=== PATIENT | female | born 1970 | race African-American/Black ===

== ENCOUNTER 2017-08-12 23:16 | Inpatient (IN) | payer MEDICARE ==
[~2017-08-12] VITALS: Ht 165.1 cm; Wt 104.3 kg
--- NOTE | 2017-08-12 22:00 | NUR ---
Patient received at 2200 from [facility] by ambulance in [facility]. Will initiate admission. Belongings list reviewed assessments. will call for orders.
--- NOTE | 2017-08-12 23:50 | NUR ---
Patient refused MRSA swap. Also refused to had pictures taken from her incision site. Also refused ti be assessed. risk and benefits explained. continue to monitor.
[2017-08-13] MEDS ORDERED: Z GUARD REMEDY PASTE 57 GM TUBE TOP PRN ×2 (02:00→05:00)
[2017-08-13] MEDS ORDERED: OXYCODONE/APAP 5-325 MG TABLET PO PRN (04:15)
[2017-08-13] MEDS ORDERED: ZOLPIDEM 5 MG TABLET PO PRN (05:00)
[2017-08-13] MEDS ORDERED: ONDANSETRON 4 MG/2 ML VIAL IV PRN (05:00)
[2017-08-13] MEDS ORDERED: ACETAMINOPHEN 325 MG TABLET PO PRN (05:00)
[2017-08-13] MEDS ORDERED: MAGNESIUM HYDROXIDE 30 ML LIQUID UDC PO PRN (05:00)
[2017-08-13] MEDS ORDERED: BISA-79 RC (05:19)
[2017-08-13] MEDS ORDERED: OXYC15TA2 PO (05:19)
[2017-08-13] MEDS ORDERED: CLON0.1T PO (05:19)
[2017-08-13] MEDS ORDERED: ZOLP5TAB2 PO (05:19)
[2017-08-13] MEDS ORDERED: METH500T PO (05:19)
[2017-08-13] MEDS ORDERED: RING500I4 IV (05:19)
[2017-08-13] MEDS ORDERED: LOSA1TAB3 PO (05:19)
[2017-08-13] MEDS ORDERED: MORP2CAR IV (05:19)
[2017-08-13] MEDS ORDERED: PANT40TA2 PO (05:19)
[2017-08-13] MEDS ORDERED: DOCU-141 PO (05:19)
[2017-08-13] MEDS ORDERED: BUTA1CAP46 PO (05:19)
[2017-08-13] MEDS ORDERED: RIVA10TA PO (05:19)
[2017-08-13] MEDS ORDERED: ONDA4TAB10 IV (05:19)
[2017-08-13] MEDS ORDERED: OXYC-133 PO (05:19)
[2017-08-13] MEDS ORDERED: DIPH25CA83 PO (05:19)
[2017-08-13] MEDS ORDERED: MAG355OR18 PO (05:19)
[2017-08-13] MEDS ORDERED: MAGN30OR PO (05:19)
[2017-08-13] MEDS ORDERED: SENN-18 PO (05:19)
[2017-08-13 06:44] VITALS: BP 127/46
[2017-08-13 08:18] VITALS: BP 147/64
--- NOTE | 2017-08-13 10:00 | NUR ---
Patient noted resting in bed while watching tv, Complaints of pain 10/10 in right hip, PRN Percocet given, no signs of distress noted, call light in reach, bed locked and in lowest position
[2017-08-13] MEDS ORDERED: PANTOPRAZOLE SODIUM 40 MG TABLET.DR PO SCH (12:03)
[2017-08-13] MEDS: OXYCODONE/APAP 5-325 MG TABLET PO PRN ×2 (12:18→17:36)
[2017-08-13] MEDS ORDERED: LORAZEPAM 0.5 MG TABLET PO PRN (13:45)
[2017-08-13] MEDS ORDERED: SULI150T PO (13:51)
[2017-08-13] MEDS: HYDROCODONE/APAP 5-325MG TABLET PO PRN ×2 (15:56→21:12)
[2017-08-13 16:54] VITALS: BP 134/81
[2017-08-13] MEDS ORDERED: Medication Not On Formulary EA (Losartan/Hydrochlorothiazide (Hyzaar 50-12.5 Tablet) 1 E PO SCH (17:00)
[2017-08-13] MEDS: DOCUSATE SODIUM 100 MG CAPSULE PO SCH (17:27)
[2017-08-13] MEDS: HYDROCHLOROTHIAZIDE 12.5 MG CAPSULE PO SCH (17:36)
[2017-08-13] MEDS: LOSARTAN POTASSIUM 50 MG TABLET PO SCH (17:37)
[2017-08-13] MEDS: RIVAROXABAN 10 MG TABLET PO SCH (17:40)
--- NOTE | 2017-08-13 19:30 | NUR ---
Awake during initial rounds. Denies any pain/discomforts at this time. Dressing on right hip dry and intact. Ambulatory to the bathroom with walker. Safety measure and fall precaution maintained. Continue care as planned.
[2017-08-13 20:31] VITALS: BP 109/49
[2017-08-13] MEDS ORDERED: DOCUSATE SODIUM 100 MG CAPSULE PO SCH (21:00)
[2017-08-13] MEDS: PANTOPRAZOLE SODIUM 40 MG TABLET.DR PO SCH (21:00)
[2017-08-14] MEDS: OXYCODONE/APAP 5-325 MG TABLET PO PRN ×4 (02:31→20:34)
[2017-08-14 05:00] VITALS: BP 123/59
--- NOTE | 2017-08-14 07:06 | NUR ---
Shift End Report: VS stable. Slept in between care. Medicated 3x for pain with mild relief. Complaining that she needed a stronger pain medication when she found out that [place] was discontinued. Will endorse to oncoming nurse. All need attended and met. No significant event reported. Continue current plan of care.
--- NOTE | 2017-08-14 07:57 | NUR ---
Patient noted ambulating to restroom, complains of pain, previous nurse has already medicated, will reassess, no signs of distress noted, call light in reach, bed locked and in lowest position
[2017-08-14 08:02] VITALS: BP 126/63
[2017-08-14] MEDS: DOCUSATE SODIUM 100 MG CAPSULE PO SCH ×2 (08:47→17:27)
[2017-08-14] MEDS ORDERED: HYDROCODONE/APAP 5-325MG TABLET PO PRN (11:15)
[2017-08-14] MEDS: METHOCARBAMOL 500 MG TABLET PO PRN ×2 (11:23→20:40)
[2017-08-14] MEDS ORDERED: MORPHINE SULFATE SR 15 MG TABLET.SA PO SCH (14:00)
[2017-08-14] MEDS: HYDROCHLOROTHIAZIDE 12.5 MG CAPSULE PO SCH (17:00)
[2017-08-14] MEDS: LOSARTAN POTASSIUM 50 MG TABLET PO SCH (17:00)
[2017-08-14] MEDS: HYDROCODONE/APAP 5-325MG TABLET PO PRN (17:25)
[2017-08-14] MEDS: RIVAROXABAN 10 MG TABLET PO SCH (17:35)
--- NOTE | 2017-08-14 19:40 | NUR ---
Received pt in bed, watching television. AAO x 4, no acute distress noted. C/O right hip pain 8/10 aching and tender. Verbally responsive and able to make needs known. All safety measures and fall precautions maintained. Call light and all personal belongings within reach. Will continue to monitor.
[2017-08-14] MEDS: PANTOPRAZOLE SODIUM 40 MG TABLET.DR PO SCH (20:34)
[2017-08-14 20:56] VITALS: BP 140/73
[2017-08-14] MEDS ORDERED: METHYL SALICYLATE/MENTHOL CREAM 28 GM TUBE TOP PRN (21:00)
[2017-08-15] MEDS: HYDROCODONE/APAP 5-325MG TABLET PO PRN ×4 (01:42→20:16)
--- NOTE | 2017-08-15 02:00 | NUR ---
Patient reported pain right hip 10/10 pain scale. PRN [place] given per MD order. Upon assessment, noted with right inner groin redness, tender to touch and warm. No acute distress noted. Picture taken and placed in chart. MD made aware, awaiting response. Safety maintained. Call light within reach. Will continue to monitor.
[2017-08-15] MEDS: OXYCODONE/APAP 5-325 MG TABLET PO PRN ×4 (04:20→23:54)
[2017-08-15] MEDS: METHOCARBAMOL 500 MG TABLET PO PRN ×3 (07:07→20:15)
--- NOTE | 2017-08-15 07:28 | NUR ---
Patient reported open wounds with bleeding on bottocks and vaginal area. Upon assessment, no noted active bleeding but per pt "it stings and bleeds when I wipe." Pictures taken and placed into chart. Wound consult ordered. Safety maintained. Will continue to monitor. Will endorse to AM shift.
--- NOTE | 2017-08-15 07:45 | NUR ---
Patient awake, verbally responsive, in bed, not in any form of acute distress. She denies any pain or discomfort at this time. Call light placed within reach. Assisted with her needs.
[2017-08-15 08:00] VITALS: BP 126/63
[2017-08-15] MEDS: DOCUSATE SODIUM 100 MG CAPSULE PO SCH ×2 (08:25→17:10)
[2017-08-15] MEDS ORDERED: HYDROCHLOROTHIAZIDE 12.5 MG CAPSULE PO SCH (09:00)
[2017-08-15] MEDS ORDERED: LOSARTAN POTASSIUM 50 MG TABLET PO SCH (09:00)
--- NOTE | 2017-08-15 12:20 | NUR ---
WOUND CARE CONSULT: PT REFUSED SKIN ASSESSMENT AT THIS TIME. WILL SEE PT PT CONDITION PERMITS. CURRENT SABIHA SCORE 22.
--- NOTE | 2017-08-15 12:45 | NUR ---
Clarified with Dr. Thao regarding current order of losartan and hydrochlorothiazide as complained by the patient and per MD may change to her own home medication losartan 100mg/hydrochlorothiazide 25mg 1 tab PO daily and start her Bystolic 10mg 1 tab PO daily . Pharmacy informed c/o Alicja. Patient made aware of new order.
[2017-08-15] MEDS ORDERED: LOSA1TAB39 PO (12:50)
[2017-08-15] MEDS ORDERED: NEBI10TA2 PO (12:50)
--- NOTE | 2017-08-15 14:24 | NUR ---
WOUND CONSULT: PT PRESENTS WITH SCRATCH MONTERO TO BILATERAL BUTTOCKS, PRESENT ON ADMISSION. PT ALSO HAS A FEW SCRATCH MONTERO TO RT SHOULDER AREA. PT STATES THAT SHE HAS IRRITATION AND ITCHING TO PERINEUM. NO RASH NOTED ON PERINEUM. PT NOTED TO BE SCRATCHING PERINEAL AREA. RECOMMENDATIONS MADE FOR SKIN PROTECTION AND CARE. DISCUSSED WITH NURSING STAFF AND PATIENT. PT AMBULATES WITH WALKER AND P.T. PT IS CONTINENT. CURRENT SABIHA SCORE IS 22. WILL SEE PRN. Shaniqua Gallardo IN AGREEMENT WITH PLAN OF CARE. Addendum: 08/15/17 at 1430 by BOBBI LYNCH RN Amended: Links added.
[2017-08-15 16:00] VITALS: BP 119/58
[2017-08-15] MEDS ORDERED: LOSARTAN POTASSIUM 50 MG TABLET PO ONE (17:00)
[2017-08-15] MEDS ORDERED: HYDROCHLOROTHIAZIDE 12.5 MG CAPSULE PO ONE (17:00)
[2017-08-15] MEDS: CLOTRIMAZOLE 1% CREAM 30 GM TUBE TOP SCH (17:14)
[2017-08-15] MEDS: RIVAROXABAN 10 MG TABLET PO SCH (17:41)
--- NOTE | 2017-08-15 19:10 | NUR ---
Awake during initial rounds. No complaint of pain presented at this time. Dressing on right hip dry and intact. No s/s infection. Continue care as planned.
[2017-08-15 20:15] VITALS: BP 135/76
[2017-08-15] MEDS: PANTOPRAZOLE SODIUM 40 MG TABLET.DR PO SCH (20:17)
[2017-08-16] MEDS: HYDROCODONE/APAP 5-325MG TABLET PO PRN ×2 (04:19→11:32)
[2017-08-16] MEDS: METHOCARBAMOL 500 MG TABLET PO PRN ×2 (04:20→11:32)
[2017-08-16 06:06] VITALS: BP 123/61
--- NOTE | 2017-08-16 06:42 | NUR ---
Shift End Report: VS stable. Medicated for pain as needed round the clock with moderate effect. All needs attended and met. No significant event reported. Continue care as planned.
[2017-08-16] MEDS: OXYCODONE/APAP 5-325 MG TABLET PO PRN (08:10)
[2017-08-16] MEDS: DOCUSATE SODIUM 100 MG CAPSULE PO SCH (08:10)
[2017-08-16] MEDS: CLOTRIMAZOLE 1% CREAM 30 GM TUBE TOP SCH (08:11)
[2017-08-16 08:41] VITALS: BP 129/71
[2017-08-16] MEDS ORDERED: BYSTOLIC 10 MG PO SCH (09:00)
[2017-08-16] MEDS ORDERED: HCTZ PO SCH (09:00)
[2017-08-16] MEDS ORDERED: LOSARTAN PO SCH (09:00)
--- NOTE | 2017-08-16 13:00 | NUR ---
D/C NOTE MEDS PICKED UP FROM THE PHARMACY HYDROCODONE, BACLOFEN, CLINDAMYCIN HCL, IRON, SULINDAC, BYSTOLIC, LOSARTAN, FLUTICASONE DROPICINATE. GIVEN TO PT. D/C ODER ON FILE. NO SKIN BREAKDOWN NOTED NO PICS TAKEN.
--- NOTE | 2017-08-16 13:27 | NUR ---
REFUSED TO HAVE PICS TAKEN OF RIGHT HIP INCISION
== END 2017-08-16 15:25 | DRG 561 ==
PROVIDERS: ADMIT Physical Medicine & Rehabilitation Pain Medicine; ATTEND Physical Medicine & Rehabilitation Pain Medicine
DX: Z47.1 Aftercare following joint replacement surgery (principal); Z96.643 Presence of artificial hip joint, bilateral; E11.9 Type 2 diabetes mellitus without complications; E66.9 Obesity, unspecified; Z68.38 Body mass index [BMI] 38.0-38.9, adult; G89.29 Other chronic pain; I10 Essential (primary) hypertension; K59.09 Other constipation; L40.9 Psoriasis, unspecified; M54.5 Low back pain; Z88.5 Allergy status to narcotic agent; L08.9 Local infection of the skin and subcutaneous tissue, unspecified
CPT/HCPCS: 70030-TC; 92523; 92610; 97110; 97112; 97116; 97530; 97535; A4663